=== PATIENT | male | born 1950 | race Caucasian/White ===

== ENCOUNTER 2017-08-13 09:37 | Emergency (ER) | payer OTHER ==
[~2017-08-13] VITALS: Ht 172.7 cm; Wt 75.0 kg
[2017-08-13 09:45] VITALS: BP 138/75; PULSE 92; RESP 20; TEMP 98.1; O2SAT 94
[2017-08-13] MEDS ORDERED: KETOROLAC TROMETHAMINE 60 MG/2 ML (IM) VIAL IM ONE (10:00)
[2017-08-13] MEDS ORDERED: ORPHENADRINE INJ 60 MG/2 ML AMP IM ONE (10:00)
[2017-08-13] MEDS ORDERED: IBUP1TAB7 PO (10:01)
[2017-08-13] MEDS ORDERED: ROBA500T PO (10:01)
--- NOTE | 2017-08-13 10:01 | PD ---
HPI Chief Complaint: Back/ Neck Pain or Injury Time Seen by Provider: 09:53 Travel History International Travel<30 days: No Contact w/Intl Traveler<30days: No Traveled to known affect area: No History of Present Illness HPI 67-year-old male presents to the emergency department with low back pain since Monday morning upon waking. He thinks he lifted a bag of region feet on wrong, causing the pain to his lower back. Denies encopresis, incontinence, saddle anesthesias. Denies IV drug use, cancer. Denies abdominal pain, fevers, vomiting, change in urine or stool. Denies paresthesias , loss of sensation, decreased range of motion, decreased strength to bilateral lower extremities. Reports pain is so bad when he stands up that his legs become shaky. Rates pain 6/10. Worse with standing up. Better with lying down and at rest. Has not taken any medication to alleviate his symptoms. Has tried heating pad to lower back for symptom management. Primary care provider is Dr. Moy. History of COPD and uses Brio. No known allergies. Has no other medical complaints. No other modifying factors or associated signs and symptoms. [facility] Social History Tobacco Use: No Allergies-Medications (Allergen,Severity, Reaction): Coded Allergies: No Known Allergies (Unverified , 08/13/17) Reported Meds & Prescriptions Reported Meds & Active Scripts Active Ibuprofen 800 Mg Tab 800 Mg PO Q6HR PRN Robaxin (Methocarbamol) 500 Mg Tab 500 Mg PO QID PRN Review of Systems Except as stated in HPI: all other systems reviewed are Neg Physical Exam Narrative GENERAL: Well-nourished, well-developed male patient, in no acute distress; afebrile, nontoxic-appearing SKIN: Warm and dry. HEAD: Atraumatic. Normocephalic. EYES: Pupils equal and round. No scleral icterus. No injection or drainage. ENT: Mucosa pink and moist. Airway patent. NECK: Trachea midline. CARDIOVASCULAR: Regular rate. RESPIRATORY: No accessory muscle use. GASTROINTESTINAL: Flat. MUSCULOSKELETAL: Bilateral lower extremities supple and non-tense with 2+ pedal pulses and sensory intact; with full range of motion and 5/5 strength. 2 + DTRs bilaterally. Active dorsiflexion and extension of bilateral feet. Bilateral straight leg raise is positive for low back pain. Ambulatory in room with guarded gait. Sitting up in bed at 90. No obvious deformities. No clubbing. No cyanosis. No edema. BACK: No midline point tenderness on palpation of the lumbar spine. Tenderness on palpation of bilateral lumbar paraspinal area. No obvious deformities. NEUROLOGICAL: Awake and alert. Oriented 3. No obvious cranial nerve deficits. Motor grossly within normal limits. Normal speech. Moves all extremities. 5/5 strength to all extremities. Sensory intact. PSYCHIATRIC: Appropriate mood and affect; insight and judgment normal. Data Data Last Documented VS Vital Signs Date Time Temp Pulse Resp B/P (MAP) Pulse Ox O2 Delivery O2 Flow Rate FiO2 08/13/17 09:45 98.1 92 20 138/75 (96) 94 Orders Orders Ketorolac Inj (Toradol Inj) (08/13/17 10:00) Orphenadrine Inj (Norflex Inj) (08/13/17 10:00) Ed Discharge Order (08/13/17 10:14) [facility] Medical Decision Making Medical Screen Exam Complete: Yes Emergency Medical Condition: Yes Medical Record Reviewed: Yes Differential Diagnosis Acute low back pain, low back strain, muscle spasm Narrative Course 67-year-old male with acute low back pain, low back strain, and spasms of muscle of lower back. Denies encopresis, incontinence, saddle anesthesias. Denies IV drug use, cancer. Patient is ambulatory in the room with a guarded gait. Neuro exam is unremarkable. No midline tenderness on palpation of the lumbar spine. Norflex and Toradol administered in the ER. Ibuprofen and Robaxin prescribed for home. Instructed patient to follow up with primary care provider. Patient verbalizes understanding and agreement with treatment plan. Patient is medically cleared and stable for discharge. Discussed reasons to return to the emergency department. Patient agrees with treatment plan. The patients vital signs are stable and the patient is stable for outpatient follow- up and treatment. Patient discharged home, stable and in no acute distress. Diagnosis Primary Impression: Acute low back pain Qualified Codes: M54.5 - Low back pain Additional Impressions: Strain of muscle, fascia and tendon of lower back, initial encounter Spasm of muscle of lower back Referrals: Primary Care Physician Patient Instructions: Acute Low Back Pain (ED), General Instructions, Low Back Strain (ED), Muscle Spasm (ED) Additional Instructions: Tylenol or ibuprofen as directed and as needed for pain Robaxin as prescribed and as needed for muscle spasms Heating pad and/or ice to affected area to reduce pain Avoid aggravating activities; increase activity as tolerated Follow-up with primary care provider Return to emergency department immediately with worsening of symptoms Med/Other Pt SpecificInfo: Prescription(s) given Scripts Ibuprofen (Ibuprofen) 800 Mg Tab 800 MG PO Q6HR Y for PAIN, #30 TAB 0 Refills Prov: Janet Enrique 08/13/17 Methocarbamol (Robaxin) 500 Mg Tab 500 MG PO QID Y for MUSCLE SPASM, #30 TAB 0 Refills Prov: Janet Enrique 08/13/17 Disposition: 01 DISCHARGE HOME Condition: Stable Janet Enrique Aug 13, 2017 10:01
== END 2017-08-13 10:23 | disposition home or self-care (01) ==
LOC: NEPD 09:37
DX: S39.012A Strain of muscle, fascia and tendon of lower back, initial encounter (principal); X50.0XXA Overexertion from strenuous movement or load, initial encounter
CPT/HCPCS: 96372; 99283; J1885; J2360